=== PATIENT | male | born 1960 | race Caucasian/White ===

== ENCOUNTER 2018-02-21 21:17 | Emergency (ER) | payer OTHER ==
[~2018-02-21] VITALS: Ht 182.9 cm; Wt 86.2 kg
[2018-02-21] MEDS ORDERED: BACTRIM DS TAB1 EACH PO (22:13)
[2018-02-21 22:22] VITALS: BP 136/80
== END 2018-02-21 22:23 | disposition home or self-care (01) ==
LOC: M.ERS 21:17
DX: L72.3 Sebaceous cyst (principal); E11.9 Type 2 diabetes mellitus without complications; Z90.49 Acquired absence of other specified parts of digestive tract

== ENCOUNTER 2020-01-04 23:43 | Inpatient (IN) | payer OTHER ==
[~2020-01-04] VITALS: Ht 182.9 cm; Wt 81.6 kg
[~2020-01-04 23:43] MED LIST: BACTRIM DS TAB1 EACH PO
[2020-01-04 23:51] VITALS: BP 179/93
[2020-01-04] MEDS ORDERED: MUCINEX PO (23:55)
[2020-01-05] VITALS (7 sets, daily range): BP systolic 123–139; BP diastolic 63–82
[2020-01-05 00:29] LABS: ABSOLUTE EOSINOPHILS 0.3 thou/uL (0.0-0.7); ABSOLUTE MONOCYTES 0.7 thou/uL (0.0-1.2); ABSOLUTE NEUTROPHILS 7.6 thou/uL (1.6-8.1); BASOPHILS 0.5 %; EOSINOPHILS 3.1 %; HEMATOCRIT 46.7 % (42.0-52.0); HEMOGLOBIN 16.7 gm/dL (14.0-18.0); LYMPHOCYTES 10.3 %; MCH 32.6 pg (26.0-34.0); MCHC 35.7 g/dL (28.0-37.0); MCV 91.4 fL (80.0-100.0); MONOCYTES 7.7 %; MPV 8.4 fl. (7.2-11.1); NUCLEATED RBCS 0 /100WBC; PLATELET COUNT* 180 thou/uL (150-400); POLYS 78.4 %; RBC 5.11 mil/uL (4.50-6.00); RDW-CV 12.9 % (10.5-14.5); WBC 9.7 thou/uL (4.0-11.0)
[2020-01-05 00:37] LABS: CALCIUM 8.7 mg/dL (8.5-10.1); CREATININE 0.7 mg/dL (0.6-1.3); POTASSIUM 3.7 mmol/L (3.5-5.1)
[2020-01-05 00:42] LABS: INR 1.1; PROTIME 10.8 Seconds (9.20-11.50)
[2020-01-05 01:03] LABS: INFLUENZA A ANTIGEN Negative (Negative)
[2020-01-05 01:44] LABS: BE 1.3 mmol/L (-2 to +3); PCO2 40.5 mmHg (35.0-45.0); PO2 63.5 mmHg (75.0-100.0); pH 7.422 (7.340-7.450)
--- NOTE | 2020-01-05 10:46 | EKG ---
[place] [address] ELECTROCARDIOGRAM REPORT Name: NICOLEDIONICIO VILLALOBOS Room: [address] IN [facility]#: [id number] Admission: 01/05/20 Attend Phys: Lucina Saravia, Discharge: Date of : 56 Date of Service: 01/05/20 0000 Report #: [id number] THIS REPORT FOR: //name// [facility] ED Test Date: 2020-01-05 Test Time: 00:00:52 Pat Name: DIONICIO LOZANO Department: Room: Gender: M Television Presenter: AMY : 1960 Requested By: HELADIO Order Number: [id number] MD: Josr Luque Measurements Intervals Boyd Rate: 103 P: 71 NE: 166 QRS: 36 QRSD: 94 T: 35 QT: 328 QTc: 430 Interpretive Statements Sinus tachycardia No previous ECG available for comparison Electronically Signed On 01-05-2020 10:45:[address] JUSTICE by Josr Luque [email or web address] <ELECTRONICALLY SIGNED> By: Josr Luque MD, [facility] 01/05/20 1045 0000 0000 Josr Luque MD, FAC /EPI
[2020-01-06 02:08] LABS: GLYCOHEMOGLOBIN (HGB A1C) 8.5 % (4.8-5.6)
[2020-01-06 03:39] LABS: ABSOLUTE LYMPHOCYTES 1.9 thou/uL (0.8-5.3); ABSOLUTE MONOCYTES 0.9 thou/uL (0.0-1.2); ABSOLUTE NEUTROPHILS 6.5 thou/uL (1.6-8.1); BASOPHILS 0.5 %; EOSINOPHILS 0.3 %; HEMATOCRIT 40.8 % (42.0-52.0); HEMOGLOBIN 14.8 gm/dL (14.0-18.0); LYMPHOCYTES 20.1 %; MCH 33.3 pg (26.0-34.0); MCHC 36.2 g/dL (28.0-37.0); MCV 91.9 fL (80.0-100.0); MPV 8.4 fl. (7.2-11.1); NUCLEATED RBCS 0 /100WBC; PLATELET COUNT* 174 thou/uL (150-400); POLYS 69.1 %; RBC 4.44 mil/uL (4.50-6.00); RDW-CV 13.3 % (10.5-14.5); WBC 9.4 thou/uL (4.0-11.0)
[2020-01-06 03:48] LABS: CALCIUM 8.6 mg/dL (8.5-10.1); CREATININE 0.6 mg/dL (0.6-1.3); POTASSIUM 3.3 mmol/L (3.5-5.1)
[2020-01-06 09:30] VITALS: BP 123/71
[2020-01-06] MEDS ORDERED: VENTOLIN HFA 1818 GM INH (11:50)
[2020-01-06] MEDS ORDERED: TAMIFLU75 MG PO (11:50)
[2020-01-06 12:24] VITALS: BP 123/71
[2020-01-06 12:45] VITALS: BP 123/71
== END 2020-01-06 12:47 | disposition home or self-care (01) | DRG 193 ==
LOC: M.ERS 23:43 → M.TBA-ER 01-05 01:20 → M.3W 01-05 18:40
PROVIDERS: Emergency Medicine; Internal Medicine; ADMIT Internal Medicine
DX: J10.08 Influenza due to other identified influenza virus with other specified pneumonia (principal); J96.91 Respiratory failure, unspecified with hypoxia; R65.10 Systemic inflammatory response syndrome (SIRS) of non-infectious origin without acute organ dysfunction; J12.9 Viral pneumonia, unspecified; E86.0 Dehydration; E11.65 Type 2 diabetes mellitus with hyperglycemia; Z90.49 Acquired absence of other specified parts of digestive tract; Z79.899 Other long term (current) drug therapy